=== PATIENT | male | born 1975 | race Hispanic/Latino ===

== ENCOUNTER → 2024-07-19 | Day surgery (SDC) | payer BC ==
[~2024-07-19] MED LIST: HYDROCHLOROTHIA25 MG PO; KETAMINE HCL INJ 50 MG/ML 10 ML VIAL ONE
[2024-07-19] MEDS: LACTATED RINGER'S 1,000 ML ONE (06:36)
[2024-07-19 08:46] VITALS: TEMP 97.2
[2024-07-19 09:15] VITALS: BP 120/86; PULSE 75; RESP 16; O2SAT 97
== END | disposition home or self-care (01) ==
LOC: OR 06:41
PROVIDERS: ATTEND Internal Medicine Gastroenterology
DX: Z12.11 Encounter for screening for malignant neoplasm of colon (principal); K63.5 Polyp of colon; K57.30 Diverticulosis of large intestine without perforation or abscess without bleeding; K64.8 Other hemorrhoids; I10 Essential (primary) hypertension; E66.01 Morbid (severe) obesity due to excess calories; Z01.810 Encounter for preprocedural cardiovascular examination; Z79.899 Other long term (current) drug therapy
CPT/HCPCS: 45385; 93005; J7121; 45378